=== PATIENT | male | born 1995 | race Caucasian/White ===

== ENCOUNTER 2022-09-20 14:23 | Emergency (ER) | payer BC ==
[~2022-09-20] VITALS: Ht 167.6 cm; Wt 77.1 kg
[2022-09-20] MEDS ORDERED: TDAP DIPH,PERTUSS,TET VAC/PF 0.5 ML DISP.SYRIN IM ONE ×2 (14:45)
--- NOTE | 2022-09-20 14:46 | NUR ---
Patient ambulated into room #4a with c/o right index finger injury, was seen by ER MD and informed of plan of care. No s/s of any distress noted, will continue to monitor.
--- NOTE | 2022-09-20 14:48 | NUR ---
Pt seen by MD at point of triage. Safety measures in place. Will continue to monitor.
--- NOTE | 2022-09-20 14:56 | NUR ---
Wound cleaned at this time awaiting MD repair.
--- NOTE | 2022-09-20 15:55 | NUR ---
Patient awaiting radiology, no voiced c/o at this time.
--- NOTE | 2022-09-20 16:36 | NUR ---
Radiology at bedside, awaiting results.
--- NOTE | 2022-09-20 16:51 | NUR ---
ACI GIVEN, REMAINS STABLE FOR DISCHARGE HOME.
[2022-09-20 16:53] VITALS: BP 131/76
== END 2022-09-20 16:54 | disposition home or self-care (01) ==
LOC: ER 14:23
DX: S61.310A Laceration without foreign body of right index finger with damage to nail, initial encounter (principal); Z88.8 Allergy status to other drugs, medicaments and biological substances; W23.0XXA Caught, crushed, jammed, or pinched between moving objects, initial encounter; Y93.89 Activity, other specified; Y92.89 Other specified places as the place of occurrence of the external cause; Y99.8 Other external cause status
CPT/HCPCS: 73140; 90715; A4663